=== PATIENT | female | born 1990 | race Caucasian/White ===

== ENCOUNTER 2020-07-02 19:08 | Emergency (ER) | payer OTHER ==
[~2020-07-02] VITALS: Ht 180.3 cm; Wt 122.5 kg
[~2020-07-02 19:08] MED LIST: MILLIPRED DP5 M1; PLAQUENIL; SYNTHROID50 MCG
[2020-07-02] MEDS ORDERED: HYDROXYCHLOROQ200 MG PO (19:17)
[2020-07-02] MEDS ORDERED: ORAPRED ODT15 MG (19:17)
== END 2020-07-02 23:14 | disposition home or self-care (01) ==
LOC: ER 19:08
DX: O03.6 Delayed or excessive hemorrhage following complete or unspecified spontaneous abortion (principal); Z03.818 Encounter for observation for suspected exposure to other biological agents ruled out

== ENCOUNTER → 2020-11-15 | Emergency (ER) | payer OTHER ==
[~2020-11-15] VITALS: Ht 180.3 cm; Wt 127.0 kg
[~2020-11-15] MED LIST changes: +HYDROXYCHLOROQ200 MG PO; +LEVSIN/SL0.125 MG PO; +ORAPRED ODT15 MG; +PEPCID AC20 MG PO; +PROTONIX40 MG PO; +ULTRAM50 MG PO
== END | disposition home or self-care (01) ==
LOC: ER 13:23
DX: K29.70 Gastritis, unspecified, without bleeding (principal); E86.0 Dehydration; R10.84 Generalized abdominal pain

== ENCOUNTER 2020-11-17 00:58 | Emergency (ER) | payer OTHER ==
[~2020-11-17] VITALS: Ht 167.6 cm; Wt 127.0 kg
== END 2020-11-17 04:16 | disposition home or self-care (01) ==
LOC: ER 00:58
DX: R42 Dizziness and giddiness (principal); T50.995A Adverse effect of other drugs, medicaments and biological substances, initial encounter; Y92.89 Other specified places as the place of occurrence of the external cause